=== PATIENT | male | born 2000 | race American Indian/Alaskan Native ===

== ENCOUNTER 2022-02-11 04:48 | Emergency (ER) | payer SELFPAY ==
[2022-02-11 06:06] LABS: Bilirubin,Urine NEG (Negative); Blood,Urine NEG (Negative); Color,Urine Yellow (Yellow); Mucus,Urine 3+ /HPF; Urobilinogen,Urine < 2.0 mg/dL (<2.0)
[2022-02-11 06:09] LABS: RBC,Urine < 1.0 /HPF (0.0-6.0); WBC,Urine > 182.0 /HPF (0.0-6.0)
[2022-02-11] MEDS ORDERED: cefTRIAXone/NS 2 GM/100 ML 2 GM/100 ML BAG IV ONE (07:13)
[2022-02-11] MEDS ORDERED: IBUPROFEN 800 MG TAB PO ONE (07:18)
[2022-02-11] MEDS ORDERED: HYDROcodone/ACETAMINOPHEN 5-325 MG TAB PO ONE (07:18)
--- NOTE | 2022-02-11 07:19 | Emergency Department Report ---
ED Male HPI - General Chief complaint: Pain General Stated complaint: FLANK PAIN Time Seen by Provider: 02/11/22 07:13 Source: patient Mode of arrival: Ambulatory Limitations: No Limitations - History of Present Illness Initial comments: Patient is a 21-year-old male that comes to the emergency room today complaining of testicular pain. He just left the clinic where he tested negative for all STDs. He also endorses right flank pain. He denies any dysuria. he has no blood in his urine. He is not presenting as a kidney stone. He denies any dis charge. He is sexually active with one female. He endorses testicular pain, bilateral testes for 2 days. Patient is ambulatory nontoxic [id number] on arrival to the ER MD Complaint: testicle pain -: Gradual, days(s) Location: right testicle, left testicle Radiation: none Severity: mild Quality: aching Consistency: constant Improves with: none Worsens with: none denies other symptoms. denies: discharge, swelling, mass, rash, urinary retention, blood in urine, dysuria, fever, nausea/vomiting, incontinence - Related Data Sexually active: Yes Previous Rx's Medication Instructions Recorded Last Taken Type DOXYCYCLINE Hyclate [Vibramycin 100 mg PO Q12HR #20 capsule 02/11/22 Unknown Rx CAP] Allergies Allergy/AdvReac Type Severity Reaction Status Date / Time No Known Allergies Allergy Verified 02/11/22 04:58 ED Review of Systems ROS: Stated complaint: FLANK PAIN Other details as noted in HPI Comment: All other systems reviewed and negative ED Past Medical Hx - Past Medical History Previous Medical History?: No - Surgical History Past Surgical History?: No - Family History Family history: no significant - Social History Smoking Status: Never Smoker Substance Use Type: None - Medications Home Medications: Home Medications Medication Instructions Recorded Confirmed Last Taken Type DOXYCYCLINE Hyclate [Vibramycin 100 mg PO Q12HR #20 capsule 02/11/22 Unknown Rx CAP] ED Physical Exam - General Limitations: No Limitations General appearance: alert, in no apparent distress - Head Head exam: Present: atraumatic, normocephalic - Eye Eye exam: Present: normal appearance - ENT ENT exam: Present: mucous membranes moist - Neck Neck exam: Present: normal inspection - Respiratory Respiratory exam: Present: normal lung sounds bilaterally. Absent: respiratory distress - Cardiovascular Cardiovascular Exam: Present: regular rate, normal rhythm. Absent: systolic murmur, diastolic murmur, rubs, gallop - GI/Abdominal GI/Abdominal exam: Present: soft, normal bowel sounds - Rectal Rectal exam: Present: deferred - Extremities Exam Extremities exam: Present: normal inspection - Back Exam Back exam: Present: normal inspection - Neurological Exam Neurological exam: Present: alert, oriented X3 - Psychiatric Psychiatric exam: Present: normal affect, normal mood - Skin Skin exam: Present: warm, dry, intact, normal color. Absent: rash ED Course Vital Signs 02/11/22 02/11/22 04:53 10:07 Temperature 99.2 F 98.1 F Pulse Rate 110 H 60 Respiratory 20 16 Rate Blood Pressure 111/70 103/69 O2 Sat by Pulse 98 100 Oximetry - Reevaluation(s) Reevaluation #1: 02/11/22 08:47 US tech called. She is in OR and will be here when done ED Medical Decision Making - Radiology Data Radiology results: report reviewed, image reviewed - Medical Decision Making Lab Results 02/11/22 Range/Units 05:25 Urine Color Yellow (Yellow) Urine Turbidity Slightly-cloudy (Clear) Urine pH 6.0 (5.0-7.0) Ur Specific [place] 1.026 (1.003-1.030) Urine Protein 30 mg/dl (Negative) mg/dL Urine Glucose (UA) Neg (Negative) mg/dL Urine Ketones Neg (Negative) mg/dL Urine Blood Neg (Negative) Urine Nitrite Neg (Negative) Urine Bilirubin Neg (Negative) Urine Urobilinogen < 2.0 (<2.0) mg/dL Ur Leukocyte Esterase Lg (Negative) Urine WBC (Auto) > 182.0 H (0.0-6.0) /HPF Urine RBC (Auto) < 1.0 (0.0-6.0) /HPF U Epithel Cells (Auto) 4.0 (0-13.0) /HPF Urine Mucus 3+ /HPF Labs 02/11/22 05:25 Urine Color Yellow Urine Turbidity Slightly-cloudy Urine pH 6.0 Ur Specific [place] 1.026 Urine Protein 30 mg/dl Urine Glucose (UA) Neg Urine Ketones Neg Urine Blood Neg Urine Nitrite Neg Urine Bilirubin Neg Urine Urobilinogen < 2.0 Ur Leukocyte Esterase Lg Urine WBC (Auto) > 182.0 H Urine RBC (Auto) < 1.0 U Epithel Cells (Auto) 4.0 Urine Mucus 3+ UA noted Ultrasound noted Vital Signs 02/11/22 02/11/22 04:53 10:07 Temperature 99.2 F 98.1 F Pulse Rate 110 H 60 Respiratory 20 16 Rate Blood Pressure 111/70 103/69 O2 Sat by Pulse 98 100 Oximetry Vital signs normalized at discharge. Patient was given a gram of Rocephin IM given his urine having greater than 182 WBCs. He did have a negative STD panel yesterday. Patient being discharged home on doxycycline. Patient discharged home with discharge plan of care including diet, activity, medications and follow-up. Patient verbalizes understanding of plan of care - Differential Diagnosis STI, UTI, kidney stone, epididymitis, testicular torsion Critical care attestation.: If time is entered above; I have spent that time in minutes in the direct care of this critically ill patient, excluding procedure time. ED Disposition Clinical Impression: Epididymitis UTI (urinary tract infection) Qualifiers: Urinary tract infection type: site unspecified Disposition: HOME / SELF CARE / HOMELESS Is pt being admited?: No Does the pt Need Aspirin: No Condition: Stable Instructions: Urinary Tract Infection, Adult, [id number], Epididymitis (ED) Additional Instructions: follow up with pcp next week to be sure you are getting better referral below safe sex med as ordered today motrin or tylenol for pain stay well hydrated with water Prescriptions: DOXYCYCLINE Hyclate [Vibramycin CAP] 100 mg PO Q12HR #20 capsule Referrals: SOPHIE UNGER MD [Primary Care Provider] - 3-5 Days KASSIE WADDELL MD [Staff Physician] - 3-5 Days Forms: STI Treatment and Prevention Time of Disposition: 09:51
[2022-02-11] MEDS ORDERED: LIDOCAINE-MPF (1%) 10 MG/1 ML VIAL 5 ML INFILTRATI ONE (07:36)
--- NOTE | 2022-02-11 09:47 | Ultrasound Report ---
ULTRASOUND SCROTUM INDICATION / CLINICAL INFORMATION: testicular pain. COMPARISON: None available. FINDINGS -- RIGHT TESTIS: Size = 4.0 x 2.5 x 2.7 cm. - Appearance: No significant abnormality. - Cyst or Mass: None. - Color Doppler Flow: No significant abnormality. EPIDIDYMIS: Increased vascularity HYDROCELE: Small VARICOCELE: None demonstrated. FINDINGS -- LEFT TESTIS: Size = 3.7 x 2.4 x 2.4 cm. - Appearance: No significant abnormality. - Cyst or Mass: None. - Color Doppler Flow: No significant abnormality. EPIDIDYMIS: Increased vascularity HYDROCELE: Small VARICOCELE: None demonstrated. ADDITIONAL FINDINGS: None. IMPRESSION: 1. Increased vascularity in both epididymides suggesting bilateral epididymitis. 2. Small bilateral hydroceles. 3. Testicles appear normal. Signer Name: Neno Nesbitt MD Signed: 02/11/2022 9:43 AM Workstation Name: [id number]
[2022-02-11 10:09] VITALS: BP 103/69
== END 2022-02-11 10:09 | disposition home or self-care (01) ==
LOC: ED 04:48
DX: N45.1 Epididymitis (principal); N39.0 Urinary tract infection, site not specified
CPT/HCPCS: 81001; 93975; 96372; 99284; J0696; J3490